=== PATIENT | female | born 1990 | race Caucasian/White ===

== ENCOUNTER → 2020-01-03 20:10 | Observation (INO) ==
[2020-01-03 17:37] LABS: Bacteria,Urine Few per hpf (None-Few); Bilirubin,Urine Negative (Negative); Blood,Urine Negative (Negative); Clarity,Urine Turbid (Clear); Color,Urine Yellow (Yellow); Glucose,Urine (UA) Normal (Normal); Ketones,Urine Trace mg/dL (Negative); Leukocyte Esterase,Urine Large (Negative); Mucus,Urine Few per lpf (None-Few); Nitrite,Urine Negative (Negative); PH,Urine 6.5 pH Units (5.0-8.0); Protein,Urine Trace mg/dL (Neg-Trace); Specific Gravity,Urine 1.015 (1.010-1.025); Squamous Epithelial Cell,Urine Few per hpf (None-Few); Urobilinogen,Urine Normal (Normal); WBC,Urine TNTC per hpf (0-3)
[~2020-01-03 20:10] MED LIST: Betamethasone Acet/SodPhos 30 MG/5 ML VIAL IM SCH
== END | disposition home or self-care (01) ==
LOC: 1NENULAB
PROVIDERS: ADMIT Obstetrics & Gynecology; ATTEND Obstetrics & Gynecology

== ENCOUNTER 2020-02-16 18:33 | Inpatient (IN) ==
[2020-02-16 18:13] LABS: Basophils % 0.4 %; Eosinophils % 0.4 %; Hematocrit 36.8 % (35.3-44.9); Hemoglobin 12.1 g/dL (11.5-15.4); Immature Granulocytes % 0.8 % (0-4); Lymphocytes # 2.3 K/mcL (0.6-4.6); Lymphocytes % 27.3 %; Mean Corpuscular HGB Conc 32.9 g/dL (31.6-35.5); Mean Corpuscular Hemoglobin 28.9 pg (28.0-33.3); Monocytes # 0.5 K/mcL (0.0-1.3); Monocytes % 6.2 %; Neutrophils # 5.5 K/mcL (1.6-8.9); Platelet Count 244 K/mcL (140-400); Red Blood Count 4.18 M/mcL (3.82-4.97); Red Cell Distribution Width 13.8 % (11.5-14.5); Segmented Neutrophils % 64.9 %; White Blood Count 8.5 K/mcL (4.3-11.1)
[2020-02-16 18:14] LABS: Amphetamine Screen,Urine Negative ng/mL (Cutoff=1000); Barbiturate Screen,Urine Negative ng/mL (Cutoff=200); Benzodiazepines Screen,Urine Negative ng/mL (Cutoff=200); Cannabinoid Screen,Urine Negative ng/mL (Cutoff = 50); Cocaine Screen,Urine Negative ng/mL (Cutoff= 300); Opiate Screen,Urine Negative ng/mL (Cutoff=300); Phencyclidine Screen,Urine Negative ng/mL (Cutoff=25)
[~2020-02-16 18:33] MED LIST changes: +*HR* FentaNYL (PF) 100 MCG/2 ML VIAL IVP PRN; +Azithromycin 500 MG in 0.9 % Sodium Chloride 250 ML IVPB ONE; -Betamethasone Acet/SodPhos 30 MG/5 ML VIAL IM SCH; +Famotidine 20 MG/2 ML VIAL IVP PRN; +Lidocaine 1% 20 ML MDV INFILT PRN; +Metoclopramide 10 MG/2 ML VIAL IVP PRN; +Naloxone 0.4 MG/ML INJ IVP PRN; +Ondansetron 4 MG/2 ML VIAL IVP PRN
[2020-02-16] MEDS: Ringers Solution, Lactated 1,000 ML IVC SCH ×2 (19:07→20:35)
[2020-02-16] MEDS ORDERED: EPHEDrine 50 MG/ML VIAL IVP PRN (20:01)
[2020-02-16] MEDS ORDERED: Epidural Premix (fent/bupiv) 110 ML EP SCH (20:15)
[2020-02-16 22:17] LABS: Alanine Aminotransferase 14 Units/L (7-52); Aspartate Amino Transferase 15 Units/L (13-39); BUN/Creatinine Ratio 11 (6-26); Blood Urea Nitrogen 6 mg/dL (6-20); Lactate Dehydrogenase 127 Units/L (140-271); Uric Acid 4.4 mg/dL (2.3-7.6); eGFR For African Americans > 60 (> 60); eGFR For Non-African Americans > 60 (> 60)
[2020-02-16] MEDS ORDERED: Oxytocin 20 units/ LR 1000 mL 20 UNIT/1,000 ML BAG IVC SCH ×2 (22:30)
[2020-02-17] MEDS: Ringers Solution, Lactated 1,000 ML IVC SCH (00:39)
[2020-02-17] MEDS ORDERED: Oxytocin 20 units/ LR 1000 mL 20 UNIT/1,000 ML BAG IVC ONE (02:58)
[2020-02-17] MEDS ORDERED: Benzocaine/Menthol 56 GM AEROSOL SPRAY TP PRN (02:58)
[2020-02-17] MEDS ORDERED: Oxytocin 20 units/ LR 1000 mL 20 UNIT/1,000 ML BAG IVC SCH (02:58)
[2020-02-17] MEDS ORDERED: Lanolin 7 G OINT...G. TP PRN (02:58)
[2020-02-17] MEDS ORDERED: Rho Immune Globulin 1,500 UNIT SYRINGE IM PRN (02:58)
[2020-02-17] MEDS: Ibuprofen 600 MG TABLET PO PRN ×3 (03:18→20:27)
[2020-02-17] MEDS: Prenatal Vit/FA 1 EACH TABLET PO SCH (08:06)
[2020-02-17] MEDS: Acetaminophen 325 MG TABLET PO PRN ×3 (08:06→23:53)
[2020-02-18 07:53] VITALS: BP 117/82
[2020-02-18] MEDS: Ibuprofen 600 MG TABLET PO PRN (08:04)
[2020-02-18] MEDS: Prenatal Vit/FA 1 EACH TABLET PO SCH (08:04)
== END 2020-02-18 09:35 | disposition home or self-care (01) | DRG 560 ==
LOC: 1NENULAB → 1NENUOBS 02-17 01:00 → 1NENULAB 02-17 01:29 → 1NENUOBS 02-17 03:59
PROVIDERS: ADMIT Obstetrics & Gynecology; ATTEND Obstetrics & Gynecology

== ENCOUNTER 2021-08-10 16:08 | Observation (INO) ==
[2021-08-10] MEDS ORDERED: Ringers Solution, Lactated 1,000 ML IVC ONE (17:03)
[2021-08-10] MEDS ORDERED: *HR* Nalbuphine 10 MG/ML AMPUL IV PRN (17:04)
[2021-08-10 17:33] LABS: Basophils % 0.3 %; Eosinophils % 0.4 %; Hematocrit 34.4 % (35.3-44.9); Hemoglobin 11.3 g/dL (11.5-15.4); Immature Granulocytes % 0.6 % (0-4); Lymphocytes # 2.1 K/mcL (0.6-4.6); Lymphocytes % 20.9 %; Mean Corpuscular HGB Conc 32.8 g/dL (31.6-35.5); Mean Corpuscular Hemoglobin 29.1 pg (28.0-33.3); Mean Corpuscular Volume 88.7 fL (83.0-100.0); Mean Platelet Volume 9.8 fL (9.4-12.4); Monocytes # 0.6 K/mcL (0.0-1.3); Neutrophils # 7.3 K/mcL (1.6-8.9); Platelet Count 261 K/mcL (140-400); Red Blood Count 3.88 M/mcL (3.82-4.97); Red Cell Distribution Width 13.7 % (11.5-14.5); Segmented Neutrophils % 71.8 %; White Blood Count 10.2 K/mcL (4.3-11.1)
[2021-08-10 17:41] LABS: Protein/Creatinine Ratio,Urine 0.16 mg/mg (0.00-0.20)
[2021-08-10 17:52] LABS: Alanine Aminotransferase 9 Units/L (7-52); Aspartate Amino Transferase 10 Units/L (13-39); BUN/Creatinine Ratio 11 (6-26); Blood Urea Nitrogen 6 mg/dL (6-20); Lactate Dehydrogenase 113 Units/L (140-271); Uric Acid 5.1 mg/dL (2.3-7.6); eGFR For African Americans > 60 (> 60); eGFR For Non-African Americans > 60 (> 60)
[2021-08-10 18:08] LABS: Bacteria,Urine Few per hpf (None-Few); Bilirubin,Urine Negative (Negative); Blood,Urine Negative (Negative); Clarity,Urine Turbid (Clear); Color,Urine Yellow (Yellow); Glucose,Urine (UA) Normal (Normal); Ketones,Urine Trace mg/dL (Negative); Leukocyte Esterase,Urine Large (Negative); Mucus,Urine Few per lpf (None-Few); Nitrite,Urine Negative (Negative); PH,Urine 6.5 pH Units (5.0-8.0); Protein,Urine Trace mg/dL (Neg-Trace); Specific Gravity,Urine 1.017 (1.010-1.025); Squamous Epithelial Cell,Urine Few per hpf (None-Few); Urobilinogen,Urine Normal (Normal); WBC,Urine 30-50 per hpf (0-3)
[2021-08-10] MEDS ORDERED: EPHEDrine 50 MG/ML VIAL IVP PRN (18:30)
[2021-08-10] MEDS ORDERED: Ringers Solution, Lactated 1,000 ML IVC SCH (18:30)
[2021-08-10] MEDS ORDERED: Epidural Premix (fent/bupiv) 110 ML EP SCH (18:30)
[2021-08-10] MEDS ORDERED: *HR* FentaNYL (PF) 100 MCG/2 ML VIAL EP ONE (18:30)
[2021-08-10] MEDS ORDERED: Ropivacaine/PF 0.2% 20 ML VIAL EP ONE (18:30)
== END 2021-08-10 20:13 | disposition home or self-care (01) ==
LOC: 1NENULAB
PROVIDERS: ADMIT Obstetrics & Gynecology; ATTEND Obstetrics & Gynecology

== ENCOUNTER 2021-08-20 09:57 | Inpatient (IN) ==
[2021-08-20] MEDS ORDERED: Metoclopramide 10 MG/2 ML VIAL IVP PRN (10:22)
[2021-08-20] MEDS ORDERED: Lidocaine 1% 20 ML MDV INFILT PRN (10:22)
[2021-08-20] MEDS ORDERED: Ondansetron 4 MG/2 ML VIAL IVP PRN (10:22)
[2021-08-20] MEDS ORDERED: Famotidine 20 MG/2 ML VIAL IVP PRN (10:22)
[2021-08-20] MEDS ORDERED: Azithromycin 500 MG in 0.9 % Sodium Chloride 250 ML IVPB PRN (10:22)
[2021-08-20] MEDS ORDERED: *HR* Nalbuphine 10 MG/ML AMPUL IV PRN (10:22)
[2021-08-20] MEDS ORDERED: Ringers Solution, Lactated 1,000 ML IVC SCH (10:30)
[2021-08-20 11:01] LABS: Basophils % 0.5 %; Eosinophils # 0.1 K/mcL (0.0-0.6); Eosinophils % 0.9 %; Hematocrit 33.6 % (35.3-44.9); Hemoglobin 10.9 g/dL (11.5-15.4); Lymphocytes % 25.1 %; Mean Corpuscular HGB Conc 32.4 g/dL (31.6-35.5); Mean Corpuscular Volume 89.4 fL (83.0-100.0); Monocytes # 0.5 K/mcL (0.0-1.3); Monocytes % 6.1 %; Neutrophils # 5.2 K/mcL (1.6-8.9); Platelet Count 240 K/mcL (140-400); Red Blood Count 3.76 M/mcL (3.82-4.97); Red Cell Distribution Width 13.7 % (11.5-14.5); Segmented Neutrophils % 66.4 %; White Blood Count 7.8 K/mcL (4.3-11.1)
[2021-08-20 11:10] LABS: Amphetamine Screen,Urine Negative ng/mL (Cutoff=1000); Barbiturate Screen,Urine Negative ng/mL (Cutoff=200); Benzodiazepines Screen,Urine Negative ng/mL (Cutoff=200); Cannabinoid Screen,Urine Positive ng/mL (Cutoff = 50); Cocaine Screen,Urine Negative ng/mL (Cutoff= 300); Opiate Screen,Urine Negative ng/mL (Cutoff=300); Phencyclidine Screen,Urine Negative ng/mL (Cutoff=25)
[2021-08-20] MEDS ORDERED: miSOPROStoL 25 MCG TABLET PO PRN (12:08)
[2021-08-20] MEDS ORDERED: EPHEDrine 50 MG/ML VIAL IVP PRN (14:21)
[2021-08-20] MEDS ORDERED: Epidural Premix (fent/bupiv) 110 ML EP SCH (14:30)
[2021-08-20] MEDS ORDERED: Oxytocin 30 UNIT/503 ML BAG IVC ONE (18:47)
[2021-08-20] MEDS ORDERED: miSOPROStoL 100 MCG TABLET PO STA (20:50)
[2021-08-20] MEDS ORDERED: Lanolin 7 G OINT...G. TP PRN (21:58)
[2021-08-20] MEDS ORDERED: Benzocaine/Menthol 56 GM AEROSOL SPRAY TP PRN (21:58)
[2021-08-20] MEDS ORDERED: Ondansetron ODT 4 MG TAB.RAPDIS SL PRN (21:58)
[2021-08-20] MEDS ORDERED: Measles/Mumps/Rubella Vacc 0.5 ML VIAL SQ PRN (21:58)
[2021-08-20] MEDS ORDERED: Oxytocin 30 UNIT/503 ML BAG IVC SCH (21:58)
[2021-08-20] MEDS ORDERED: Rho Immune Globulin 1,500 UNIT SYRINGE IM PRN (21:58)
[2021-08-20] MEDS: Ibuprofen 600 MG TABLET PO SCH (22:11)
[2021-08-20] MEDS: Acetaminophen 325 MG TABLET PO SCH (22:11)
[2021-08-21 00:15] VITALS: O2SAT 98
[2021-08-21 04:58] LABS: Basophils % 0.3 %; Eosinophils # 0.1 K/mcL (0.0-0.6); Eosinophils % 1.1 %; Hematocrit 32.2 % (35.3-44.9); Hemoglobin 10.5 g/dL (11.5-15.4); Immature Granulocytes % 0.8 % (0-4); Lymphocytes # 2.2 K/mcL (0.6-4.6); Lymphocytes % 24.1 %; Mean Corpuscular HGB Conc 32.6 g/dL (31.6-35.5); Mean Corpuscular Hemoglobin 29.2 pg (28.0-33.3); Mean Corpuscular Volume 89.7 fL (83.0-100.0); Mean Platelet Volume 10.2 fL (9.4-12.4); Monocytes # 0.6 K/mcL (0.0-1.3); Monocytes % 6.7 %; Platelet Count 210 K/mcL (140-400); Red Blood Count 3.59 M/mcL (3.82-4.97); Red Cell Distribution Width 13.7 % (11.5-14.5)
[2021-08-21] MEDS: Ibuprofen 600 MG TABLET PO SCH ×3 (05:17→17:34)
[2021-08-21] MEDS: Acetaminophen 325 MG TABLET PO SCH (05:18)
[2021-08-21] MEDS ORDERED: Prenatal Vit/FA 1 EACH TABLET PO SCH (09:00)
[2021-08-21] MEDS ORDERED: Lidocaine/EPI 1:100k 1% 20 ML VIAL INFILT ONE ×2 (16:31→17:00)
[2021-08-21] MEDS ORDERED: Etonogestrel 68 MG IMPLANT IL ONE (16:31)
[2021-08-21 16:45] VITALS: BP 109/66; PULSE 62; TEMP 97.9
[2021-08-21] MEDS ORDERED: Lidocaine/EPI 1:100k 1% 30 ML VIAL INFILT ONE (17:00)
== END 2021-08-21 21:10 | disposition home or self-care (01) | DRG 806 ==
LOC: 1NENULAB 09:57 → 1NENUOBS 21:57
PROVIDERS: ADMIT Obstetrics & Gynecology; ATTEND Obstetrics & Gynecology